=== PATIENT | female | born 1960 | race Caucasian/White ===

== ENCOUNTER 2020-02-05 14:09 | Emergency (ER) | payer OTHER ==
[2020-02-05] MEDS ORDERED: LIDOCAINE 1% MPF 5 ML VIAL ONE (15:47)
[2020-02-05] MEDS ORDERED: HYDROCODONE/APAP 5/325 MG TAB ONE (15:48)
[2020-02-05] MEDS ORDERED: TETANUS & DIPHTHERIA TOX,ADULT 0.5 ML VIAL ONE (15:48)
[2020-02-05] MEDS ORDERED: BUPIVACAINE 0.5% PF 10 ML VIAL ONE (15:48)
--- NOTE | 2020-02-05 16:28 | ER ---
Nurse's Notes [facility] Name: Agustina Mendez Age: 59 yrs Sex: Female : 1960 Arrival Date: 02/05/2020 Time: 14:11 Bed 2 Private MD: Diagnosis: Laceration without foreign body of left hand Presentation: 02/04 14:28 Chief complaint: Patient states: was cutting frozen butter and the knife cut her on her sv left hand in between her 2nd and 3rd digits. Coronavirus screen: Client denies travel out of the [place] in the last 14 days. At this time, the client does not indicate any symptoms associated with coronavirus-19. Ebola Screen: No symptoms or risks identified at this time. Risk Assessment: Do you want to hurt yourself or someone else? Patient reports no desire to harm self or others. Onset of symptoms was February 05, 2020. 14:28 Method Of Arrival: Ambulatory sv 14:28 Acuity: MATT 3 sv 14:29 Complicating Factors: There are no complicating factors for this patient. Initial sv Sepsis Screen: Does the patient meet any 2 criteria? No. Patient's initial sepsis screen is negative. Does the patient have a suspected source of infection? No. Patient's initial sepsis screen is negative. Historical: - Allergies: 14:29 No Known Allergies; sv - Immunization history:: Adult Immunizations unknown. - Social history:: Smoking status: unknown. Screenin:17 Abuse screen: Denies threats or abuse. Denies injuries from another. Nutritional ph screening: No deficits noted. Tuberculosis screening: No symptoms or risk factors identified. Fall Risk None identified. Assessment: 15:42 General: Appears in no apparent distress. comfortable, well groomed, Behavior is calm, ph cooperative, appropriate for age. Pain: Complains of pain in left hand. Neuro: Level of Consciousness is awake, alert, obeys commands, Oriented to person, place, time, situation. Cardiovascular: Capillary refill < 3 seconds in bilateral fingers Patient's skin is warm and dry. Respiratory: Airway is patent Respiratory effort is even, unlabored. Derm: Skin is intact, is healthy with good turgor, Skin is pink, warm \T\ dry. Musculoskeletal: Circulation, motion, and sensation intact. Range of motion: intact in all extremities. Injury Description: Laceration sustained to between 2nd and 3rd fingers extending to palm of left hand. 16:47 Reassessment: Patient appears in no apparent distress at this time. Patient and/or ph family updated on plan of care and expected duration. Pain level reassessed. Patient is alert, oriented x 3, equal unlabored respirations, skin warm/dry/pink. Vital Signs: 14:29 BP 139 / 93; Pulse 75; Resp 16; Temp 97; Pulse Ox 99% ; Weight 70.31 kg; Height 5 ft. 8 sv in. (172.72 cm); 14:29 Body Mass Index 23.57 (70.31 kg, 172.72 cm) sv ED Course: 14:11 Patient arrived in ED. rg4 14:28 Arm band placed on. sv 14:29 Triage completed. sv 15:08 Lizet Melgar FNP-C is PHCP. snw 15:08 Alok Hicks MD is Attending Physician. snw 15:17 Lorena Hussein RN is Primary Nurse. ph 15:17 Patient has correct armband on for positive identification. Bed in low position. Call ph light in reach. Side rails up X 1. Pulse ox on. NIBP on. Door closed. Noise minimized. 16:00 Assist provider with laceration repair on left hand that was between 2.6 to 7.5 cm ph using sutures. Set up tray. Performed by Lizet TUCKER Dressed with Neosporin, Patient tolerated well. Patient did not have IV access during this emergency room visit. 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 Exp: ph 05/03/2022. Lot #: [id number]. } Route: IM; Site: right deltoid; 16:47 Follow up: Response: No adverse reaction ph 15:37 Drug: Milford 5 mg-325 mg 1 tabs Route: PO; ph 16:47 Follow up: Response: No adverse reaction ph 15:38 Drug: Marcaine (0.25 %) 1 vials Route: Infiltration; ph 16:48 Follow up: Response: No adverse reaction ph 15:38 Drug: Lidocaine (1 %) 1 vials Volume: 5 ml; Route: Infiltration; ph 16:48 Follow up: Response: No adverse reaction ph 15:38 Drug: Hibiclens 4 % 1 application Route: Topical; Site: affected area; ph 16:47 Follow up: Response: No adverse reaction ph Outcome: 16:27 Discharge ordered by . w 16:48 Discharged to home ambulatory, with significant other. ph 16:48 Condition: good 16:48 Discharge instructions given to patient, Instructed on discharge instructions, follow up and referral plans. medication usage, wound care, Demonstrated understanding of instructions, follow-up care, medications, wound care, Prescriptions given X 2. 16:49 Patient left the ED. ph Signatures: Perla Holcomb, RN RN sv Lizet Melgar, ADMINISTRATIVE DIRECTOR-C ADMINISTRATIVE DIRECTOR-Csnw Lorena Hussein RN RN Lisa Mcnamara rg4 Corrections: (The following items were deleted from the chart) 14:32 14:29 Pulse 75bpm; Resp 16bpm; Pulse Ox 99%; Temp 97F; 70.31 kg; Height 5 ft. 8 in.; sv BMI: 23.5; sv
--- NOTE | 2020-02-05 16:28 | EDPHYS ---
Physician Documentation [facility] Name: Agustina Mendez Age: 59 yrs Sex: Female : 1960 Arrival Date: 02/05/2020 Time: 14:11 Bed 2 Private MD: ED Physician Alok Hicks HPI: 02/04 19:40 This 59 yrs old Female presents to ER via Ambulatory with complaints of snw Laceration To Hand. 19:40 The patient has a laceration related to: cooking, from a knife, occurred at home, and snw there are no complicating factors. The laceration(s) is(are) located on the left hand. Onset: The symptoms/episode began/occurred suddenly, just prior to arrival. Associated signs and symptoms: Pertinent positives: heavy bleeding, Pertinent negatives: deformity, numbness distal to injury, suspected foreign body. The patient has experienced a previous episode. The patient has not recently seen a physician. Historical: - Allergies: 14:29 No Known Allergies; sv - Immunization history:: Adult Immunizations unknown. - Social history:: Smoking status: unknown. ROS: 19:40 Constitutional: Negative for fever, chills, and weight loss, Eyes: Negative for injury, snw pain, redness, and discharge, ENT: Negative for injury, pain, and discharge, Neck: Negative for injury, pain, and swelling, Cardiovascular: Negative for chest pain, palpitations, and edema, Respiratory: Negative for shortness of breath, cough, wheezing, and pleuritic chest pain, Abdomen/GI: Negative for abdominal pain, nausea, vomiting, diarrhea, and constipation, Back: Negative for injury and pain, : Negative for injury, bleeding, discharge, and swelling, MS/Extremity: Negative for injury and deformity, Neuro: Negative for headache, weakness, numbness, tingling, and seizure, Psych: Negative for depression, anxiety, suicide ideation, homicidal ideation, and hallucinations. 19:40 Skin: Positive for laceration(s), of the palmar aspect of proximal phalanx of left middle finger and palmar aspect of proximal phalanx of left index finger. Exam: 19:41 Constitutional: This is a well developed, well nourished patient who is awake, alert, snw and in no acute distress. Head/Face: Normocephalic, atraumatic. Eyes: Pupils equal round and reactive to light, extra-ocular motions intact. Lids and lashes normal. Conjunctiva and sclera are non-icteric and not injected. Cornea within normal limits. Periorbital areas with no swelling, redness, or edema. ENT: Nares patent. No nasal discharge, no septal abnormalities noted. Tympanic membranes are normal and external auditory canals are clear. Oropharynx with no redness, swelling, or masses, exudates, or evidence of obstruction, uvula midline. Mucous membranes moist. Neck: Trachea midline, no thyromegaly or masses palpated, and no cervical lymphadenopathy. Supple, full range of motion without nuchal rigidity, or vertebral point tenderness. No Meningismus. Chest/axilla: Normal chest wall appearance and motion. Nontender with no deformity. No lesions are appreciated. Cardiovascular: Regular rate and rhythm with a normal S1 and S2. No gallops, murmurs, or rubs. Normal PMI, no JVD. No pulse deficits. Respiratory: Lungs have equal breath sounds bilaterally, clear to auscultation and percussion. No rales, rhonchi or wheezes noted. No increased work of breathing, no retractions or nasal flaring. Abdomen/GI: Soft, non-tender, with normal bowel sounds. No distension or tympany. No guarding or rebound. No evidence of tenderness throughout. Back: No spinal tenderness. No costovertebral tenderness. Full range of motion. MS/ Extremity: Pulses equal, no cyanosis. Neurovascular intact. Full, normal range of motion. Neuro: Awake and alert, GCS 15, oriented to person, place, time, and situation. Cranial nerves II-XII grossly intact. Motor strength 5/5 in all extremities. Sensory grossly intact. Cerebellar exam normal. Normal gait. Psych: Awake, alert, with orientation to person, place and time. Behavior, mood, and affect are within normal limits. 19:41 Skin: Appearance: normal except for affected area, injury, laceration(s), the wound is approximately 5 cm(s), with a depth of 3 cm(s), of the in webbing between second and third fingers of left hand, full ROM, bleeding controlled. Vital Signs: 14:29 BP 139 / 93; Pulse 75; Resp 16; Temp 97; Pulse Ox 99% ; Weight 70.31 kg; Height 5 ft. 8 sv in. (172.72 cm); 14:29 Body Mass Index 23.57 (70.31 kg, 172.72 cm) sv Laceration: 16:23 Wound Repair of 5cm ( 2.0in ) subcutaneous laceration to left hand. in webbing of left snw second and third finger. Distal neuro/vascular/tendon intact. Anesthesia: Local anesthetic administered with 5 mls of 0.25% marcaine, 5 mls of 1% lidocaine, Digital block administered with 10mls . Wound prep: Moderate cleansing with hibiclenz by me. Skin closed with 1 4-0 Prolene using simple sutures and sterile technique. Dressed with Neosporin, pressure dressing. Patient tolerated well. MDM: 15:09 Patient medically screened. snw 16:25 Data reviewed: vital signs, nurses notes. Data interpreted: Pulse oximetry: on room air snw is 99 %. Interpretation: normal. Counseling: I had a detailed discussion with the patient and/or guardian regarding: the historical points, exam findings, and any diagnostic results supporting the discharge/admit diagnosis, the presence of at least one elevated blood pressure reading (>120/80) during this emergency department visit, the need for outpatient follow up, to return to the emergency department if symptoms worsen or persist or if there are any questions or concerns that arise at home. Special discussion: I discussed in detail with the patient the higher chance of wound infection based on his presenting history. Based on the history and exam findings, there is no indication for further emergent testing or inpatient evaluation. I discussed with the patient/guardian the need to see the primary care provider for further evaluation of the symptoms. 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 Exp: ph 05/03/2022. Lot #: [id number]. } Route: IM; Site: right deltoid; 16:47 Follow up: Response: No adverse reaction ph 15:37 Drug: Redford 5 mg-325 mg 1 tabs Route: PO; ph 16:47 Follow up: Response: No adverse reaction ph 15:38 Drug: Marcaine (0.25 %) 1 vials Route: Infiltration; ph 16:48 Follow up: Response: No adverse reaction ph 15:38 Drug: Lidocaine (1 %) 1 vials Volume: 5 ml; Route: Infiltration; ph 16:48 Follow up: Response: No adverse reaction ph 15:38 Drug: Hibiclens 4 % 1 application Route: Topical; Site: affected area; ph 16:47 Follow up: Response: No adverse reaction ph Disposition: 02/05 08:02 Co-signature as Attending Physician, Alok Hicks MD I agree with the assessment and kdr plan of care. Disposition: 02/05/20 16:27 Discharged to Home. Impression: Laceration without foreign body of left hand. - Condition is Stable. - Discharge Instructions: Laceration Care, Adult, RICE for Routine Care of Injuries, Sutured Wound Care, VIS, Tetanus, Diphtheria (Td) - CDC. - Prescriptions for Keflex 500 mg Oral Capsule - take 1 capsule by ORAL route every 8 hours for 10 days; 30 capsule. Mobic 7.5 mg Oral Tablet - take 1 tablet by ORAL route once daily take with food; 20 tablet. - Medication Reconciliation Form, Thank You Letter, Antibiotic Education, Prescription Opioid Use form. - Follow up: Emergency Department; When: As needed; Reason: Worsening of condition. Follow up: Private Physician; When: 10 - 14 days; Reason: Recheck today's complaints, Continuance of care, Staple/Suture removal. Signatures: Perla Holcomb, RN RN Alok Hicks MD MD kdr Waters, Shelly, STRAIGHTENER-C STRAIGHTENER-Csnw Lorena Hussein RN RN ph Corrections: (The following items were deleted from the chart) 02/04 16:49 16:27 02/05/2020 16:27 Discharged to Home. Impression: Laceration without foreign body ph of left hand. Condition is Stable. Forms are Medication Reconciliation Form, Thank You Letter, Antibiotic Education, Prescription Opioid Use. Follow up: Emergency Department; When: As needed; Reason: Worsening of condition. Follow up: Private Physician; When: 10 - 14 days; Reason: Recheck today's complaints, Continuance of care, Staple/Suture removal. snw
[2020-02-05 19:29] VITALS: BP 139/93; TEMP 97; O2SAT 99
== END 2020-02-05 16:49 | disposition home or self-care (01) ==
LOC: ER 14:09
PROC: 0JQK0ZZ Repair Left Hand Subcutaneous Tissue and Fascia, Open Approach (ICD-10-PCS; principal; 2020-02-05)
DX: S61.412A Laceration without foreign body of left hand, initial encounter (principal); W26.0XXA Contact with knife, initial encounter; Y93.G3 Activity, cooking and baking; Y92.009 Unspecified place in unspecified non-institutional (private) residence as the place of occurrence of the external cause; Z23 Encounter for immunization
CPT/HCPCS: 90471; 90714; 99284

== ENCOUNTER 2020-02-19 12:15 | Emergency (ER) | payer OTHER ==
[2011-06-12 12:02] VITALS: BP 112/77
--- NOTE | 2020-02-19 13:01 | ER ---
Nurse's Notes [facility] Name: Agustina Mendez Age: 59 yrs Sex: Female : 1960 Arrival Date: 02/19/2020 Time: 12:18 Bed 30 Private MD: Diagnosis: Encounter for removal of sutures Presentation: 02/18 12:34 Chief complaint: Patient states: Needs stitches removed from L hand. Place 2 weeks ago, dm5 no redness or drainage. Coronavirus screen: Client denies travel out of the [place] in the last 14 days. At this time, the client does not indicate any symptoms associated with coronavirus-19. Ebola Screen: Patient denies travel to an Ebola-affected area in the 21 days before illness onset. Initial Sepsis Screen: Does the patient meet any 2 criteria? No. Patient's initial sepsis screen is negative. Does the patient have a suspected source of infection? Yes: Skin breakdown/wound. Risk Assessment: Do you want to hurt yourself or someone else? Patient reports no desire to harm self or others. Onset of symptoms was February 06, 2020. 12:34 Method Of Arrival: Ambulatory dm5 12:34 Acuity: MATT 5 dm5 Triage Assessment: 13:15 General: Appears in no apparent distress. Behavior is calm, cooperative, appropriate ll1 for age. Historical: - Allergies: 12:34 No Known Allergies; dm5 - PMHx: 12:34 None; dm5 - PSHx: 12:34 None; dm5 - Immunization history:: Flu vaccine is up to date. - Social history:: Smoking status: Patient denies any tobacco usage or history of. Screenin:15 Abuse screen: Denies threats or abuse. Nutritional screening: No deficits noted. ll1 Tuberculosis screening: No symptoms or risk factors identified. Fall Risk None identified. Total Aguilar Fall Scale indicates No Risk (0-24 pts). Assessment: 12:35 General: Appears in no apparent distress. Behavior is calm, cooperative, appropriate ll1 for age. Pain: Complains of pain in left hand Pain currently is 3 out of 10 on a pain scale. Quality of pain is described as aching, "tightness" Pain began 2-3 days ago. Neuro: No deficits noted. Cardiovascular: No deficits noted. Respiratory: No deficits noted. GI: No deficits noted. Derm: Wound noted left hand Wound is healing suture site. Reports pain. Vital Signs: 12:34 BP 145 / 92; Pulse 81; Resp 17; Temp 98.4; Pulse Ox 99% ; Pain 3/10; dm5 ED Course: 12:18 Patient arrived in ED. ds1 12:33 Arm band placed on. dm5 12:35 Triage completed. dm5 12:35 Patient has correct armband on for positive identification. Bed in low position. Call ll1 light in reach. Cardiac monitoring not applicable on this patient. 12:42 Thien Garcia PA is PHCP. jr8 12:42 Alok Hicks MD is Attending Physician. jr8 13:10 Dressings: non-adherent dressing x 1 left hand triple antibiotic applied to old suture ll1 site. Covered with non stick dressing. Long finger splint used to nazario tape 2nd and 3rd digits straight. Secured to splint with Kerlix wrap. Tolerated well. PMS intact pre and post dressing/splint placement. 13:15 No provider procedures requiring assistance completed. Patient did not have IV access ll1 during this emergency room visit. Administered Medications: No medications were administered Outcome: 13:00 Discharge ordered by . jr8 13:15 Patient left the ED. ll1 13:15 Discharged to home ambulatory. 1 13:15 Condition: stable 13:15 Discharge instructions given to patient, Instructed on discharge instructions, follow up and referral plans. Demonstrated understanding of instructions, follow-up care, splint care. Signatures: Lakisha Johns, RN RN dm5 Zoe Scruggs ds1 Thien Garcia PA PA jr8 Carroll Valles RN RN ll1
--- NOTE | 2020-02-19 13:01 | EDPHYS ---
Physician Documentation [facility] Name: Agustina Mendez Age: 59 yrs Sex: Female : 1960 Arrival Date: 02/19/2020 Time: 12:18 Bed 30 Private MD: ED Physician Alok Hicks HPI: 02/18 13:02 This 59 yrs old Female presents to ER via Ambulatory with complaints of jr8 Suture Removal. 13:02 The patient has sutures on the left hand. Previous treatment: The patient was initially jr8 treated 14 day(s) ago. Sutures/tobias progress: The patient has no c/o's. The wound is well-healing with no redness, swelling, discharge, or dehiscence reported. The patient has not experienced similar symptoms in the past. The patient has not recently seen a physician. Historical: - Allergies: 12:34 No Known Allergies; dm5 - PMHx: 12:34 None; dm5 - PSHx: 12:34 None; dm5 - Immunization history:: Flu vaccine is up to date. - Social history:: Smoking status: Patient denies any tobacco usage or history of. ROS: 13:02 Skin: Positive for laceration(s). jr8 13:02 All other systems are negative. Exam: 13:02 Constitutional: This is a well developed, well nourished patient who is awake, alert, jr8 and in no acute distress. Cardiovascular: Regular rate and rhythm with a normal S1 and S2. No gallops, murmurs, or rubs. Normal PMI, no JVD. No pulse deficits. Respiratory: Lungs have equal breath sounds bilaterally, clear to auscultation and percussion. No rales, rhonchi or wheezes noted. No increased work of breathing, no retractions or nasal flaring. MS/ Extremity: Pulses equal, no cyanosis. Neurovascular intact. Full, normal range of motion. 13:02 Skin: Wound recheck: Suture laceration closure: the wound is healing well, the edges are well approximated, no evidence of dehiscence, no drainage, no erythema, no swelling. Vital Signs: 12:34 BP 145 / 92; Pulse 81; Resp 17; Temp 98.4; Pulse Ox 99% ; Pain 3/10; dm5 Procedures: 13:01 Suture/Staple removal: Removed 2 sutures, 1 running and 1 interupted , from left hand, jr8 site appears well healed, dressed with gauze bandage, Neosporin, Patient tolerated well. MDM: 12:42 Patient medically screened. jr8 12:59 Data reviewed: vital signs, nurses notes, and as a result, I will discharge patient. jr8 Data interpreted: Pulse oximetry: on room air is 99 %. Interpretation: normal. Counseling: I had a detailed discussion with the patient and/or guardian regarding: the historical points, exam findings, and any diagnostic results supporting the discharge/admit diagnosis, the need for outpatient follow up, a family practitioner, to return to the emergency department if symptoms worsen or persist or if there are any questions or concerns that arise at home. Administered Medications: No medications were administered Disposition: 17:19 Co-signature as Attending Physician, Alok Hicks MD I agree with the assessment and kdr plan of care. Disposition: 02/19/20 13:00 Discharged to Home. Impression: Encounter for removal of sutures. - Condition is Stable. - Discharge Instructions: Stitches, [place], or Adhesive Wound Closure, Suture Removal, Care After. - Medication Reconciliation Form, Thank You Letter, Antibiotic Education, Prescription Opioid Use form. - Follow up: Private Physician; When: As needed; Reason: Wound Recheck, Recheck today's complaints, Continuance of care, Re-evaluation by your physician. - Problem is new. - Symptoms have improved. Signatures: Lakisha Johns RN RN dm5 Alok Hicks MD MD kdr Roszak, Josh, PA PA jr8 Carroll Valles RN RN ll1 Corrections: (The following items were deleted from the chart) 13:15 13:00 02/19/2020 13:00 Discharged to Home. Impression: Encounter for removal of ll1 sutures. Condition is Stable. Forms are Medication Reconciliation Form, Thank You Letter, Antibiotic Education, Prescription Opioid Use. Follow up: Private Physician; When: As needed; Reason: Wound Recheck, Recheck today's complaints, Continuance of care, Re-evaluation by your physician. Problem is new. Symptoms have improved. jr8
== END 2020-02-19 13:15 | disposition home or self-care (01) ==
LOC: ER 12:15
DX: Z48.02 Encounter for removal of sutures (principal)
CPT/HCPCS: 99281